=== PATIENT | female | born 1980 | race Caucasian/White ===

== ENCOUNTER 2018-10-18 11:27 | Inpatient (IN) ==
[2018-10-18] MEDS ORDERED: SODIUM CHLORIDE 0.9% 1000ML 1,000 ML IV ONE (12:38)
[2018-10-18] MEDS ORDERED: PROCHLORPERAZINE 2 ML IV ONE (12:38)
[2018-10-18] MEDS ORDERED: FAMOTIDINE 20MG/5ML IV PUSH IV STA (12:38)
[2018-10-18 12:54] LABS: Hematocrit (blood only) 37.6 % (37-47); Hemoglobin 12.6 g/dL (12.0-16.0); Mean Corpuscular Hgb Conc 33.5 g/dL (32-36); Mean Corpuscular Volume 93.5 fL (80-100); Mean Platelet Volume 11.3 fL (7.4-10.4); Platelet Count 232 K/uL (130-400); RDW Coefficient of Variation 14.7 % (11.5-14.5); RDW Standard Deviation 50.8 fL (36.4-46.3); Red Blood Count 4.02 M/uL (4.2-5.4); White Blood Count 5.98 K/uL (4.8-10.8)
[2018-10-18 12:58] LABS: Prothrombin Time 10.6 Seconds (9.0-12.0)
[2018-10-18 13:06] LABS: Albumin Level 3.5 gm/dl (3.4-5.0); Calcium 8.9 mg/dl (8.5-10.1); Creatinine Clr Calc Pharmacy 82.8 ml/min; Est GFR (African American) 83.9; Est GFR (Non-African American) 72.4; Magnesium 2.5 mg/dl (1.8-2.4); Potassium 4.3 mmol/L (3.5-5.1)
[2018-10-18 13:13] LABS: Albumin Globulin Ratio 0.9 (0.9-2); Bilirubin Direct 0.7 mg/dl (0-0.2); Bilirubin,Total 0.8 mg/dl (0.2-1); Globulin 3.9 gm/dl (2.5-4.0); Phosphorus 3.3 mg/dl (2.5-4.9); Total Protein 7.4 gm/dl (6.4-8.2)
[2018-10-18 13:18] LABS: Eosinophils # (manual) 0.53 K/uL (0-0.5); Eosinophils % (manual) 8.8 %; Lymphocytes # (manual) 2.09 K/uL (1.2-3.4); Monocytes # (manual) 0.21 K/uL (0.11-0.59); Monocytes % (manual) 3.5 %; Neutrophils % (manual) 32.5 %; Reactive Lymphocytes # (manual) 1.21 K/uL
[2018-10-18 13:21] LABS: Appearance Urine Clear (Clear); Bilirubin Urine Negative (Negative); Blood Urine Negative (Negative); Color Urine Dark Yellow; Glucose Urine UA Negative (Negative); Ketones Urine Negative (Negative); Leukocyte Esterase Urine Negative (Negative); Nitrite Urine Negative (Negative); Protein Urine Negative (Negative); Specific Gravity Urine 1.018 (1.000-1.030); Urobilinogen Urine Negative (Negative)
[2018-10-18 13:25] LABS: Pregnancy Test, Serum Negative (Negative)
[2018-10-18] MEDS ORDERED: IOVERSOL 100ml IV PRN (14:36)
--- NOTE | 2018-10-18 16:09 | CT Scan Report ---
CT abd pelvis IV con only CLINICAL HISTORY: 37 years-old Female presenting with abdominal pain, transaminitis. TECHNIQUE: Multidetector CT of the abdomen and pelvis was performed after the administration of intra venous contrast. IV contrast: 93 mL of Optiray 320. One or more dose lowering techniques were used co nsistent with the principles of ALARA (as low as reasonably achievable), including automatic exposure control, mA or kV adjustment to individual patient size, and/or use of iterative reconstruction. COMPARISON: None. CT DOSE (mGy.cm): The estimated cumulative dose is 354.80 mGy.cm. FINDINGS: Idea Worker topogram: Cholecystectomy clips and bilateral pelvic clips noted. Lung bases: Normal heart size. No pericardial or pleural effusion. Minimal dependent changes likely a telectasis. Liver: Normal morphology. No significant heterogeneity of liver enhancement. No liver lesion. Patent hepatic vasculature. Mild periportal edema, nonspecific. Biliary: Mild biliary ductal prominence likely a reservoir effect in the post cholecystectomy state. Gallbladder surgically absent. Pancreas: Normal. Spleen: Normal. Adrenal glands: Normal. Kidneys and ureters: Normal. No hydronephrosis. Bladder: The configuration of the bladder suggests pelvic ligamentous laxity. Bladder otherwise xiao l. Pelvic organs: Uterus and ovaries normal. Bilateral fallopian tube occlusion clips. Bowel: Mild stool throughout the colon. The appendix is normal. No bowel obstruction. Peritoneal cavity: No free fluid or intraperitoneal gas. Lymph nodes: No enlarged lymph nodes in the abdomen or pelvis. Vasculature: Aorta and IVC patent and normal in caliber. Abdominal wall: Normal. Musculoskeletal: Normal. IMPRESSION: 1. Periportal edema, which is nonspecific. This is most commonly seen in the setting of aggressive v olume resuscitation. Given the absence of extensive heterogeneity of liver parenchymal enhancement, p eriportal edema as a manifestation of hepatitis is felt to be less likely. No other evidence of acute intra-abdominal pathology. 2. Status post cholecystectomy. Electronically signed by: Deven Tao M.D. 10/18/2018 4:07 PM
--- NOTE | 2018-10-18 16:41 | Emergency Department Note ---
Entered by Meka Braun acting as a scribe for Loc Hannah MD History of Present Illness General Chief complaint: Abnormal Labs/Diagnostic Testing Stated complaint: ABNORMAL LABS Time Seen by Provider: 10/18/18 12:00 Source: patient Mode of arrival: other (correction officers) Limitations: no limitations History of Present Illness Onset (ago): day(s) 2 Location: chest and abdomen Severity: similar to prior episodes Pain Consistency: + other (worsening) Maximum Pain Intensity: 9 Quality: + other (looking yellow) Associated symptoms: + chest pain (right sided), + fever/chills (The patient complains of a now resolved fever.), + headaches, + nausea/vomiting (The patient complains of nausea.), + shortness of breath and + other (The patient complains of abdominal pain. ) The patient is a 37 year old female with a history of cholecystectomy and depr ession who presents to the ED with complaints of worsening abdominal pain that onset 2 days ago. The patient states that her symptoms are similar to a previous episode that occurred 1 month ago. She complains of shortness of breath, nausea, right-sided chest pain, headache, looking yellow, and now resolved fever. The patient denies pain with urination, cough, and congestion. The patient notes that she was admitted to [facility] for 6 days 1 month ago for liver problems. She states that she was flushed with fluids, had blood work completed, and then her numbers went down and she was sent back to [facility]. She notes that she drank alcohol in 2008 when she was going through a divorce. Home Medications Home Medications Medication Instructions Recorded Confirmed Type citalopram 20 mg PO DAILY 10/18/18 10/18/18 History mirtazapine 15 mg PO HS 10/18/18 10/18/18 History omeprazole 20 mg PO DAILY 10/18/18 10/18/18 History ondansetron HCl 4 mg PO BID PRN 10/18/18 10/18/18 History Allergies Allergy/AdvReac Type Severity Reaction Status Date / Time No Known Allergies Allergy Unverified 10/18/18 12:03 Past Med/Surg History Medical History Depression Liver problem Surgical History S/P cholecystectomy Family History Brother Leukemia Social History Preferred Language: Cambodian Communication Ability: Effective Pugger Helper Required: No Beliefs That Will Affect Care: None Current Living Situation: Other Current Living Situation Comment: [facility] current occupational status: other current occupation: [employer] Other Information That Helps Us Care for You: No Feels Safe at Home: Yes Safety Concerns: Feels Safe At This Time Smoking Status: Former smoker Hx Alcohol Use: No Hx Substance Use: No Review of Systems See HPI for pertinent positives & negatives. and A total of 10 systems reviewed and were otherwise negative Physical Exam Vital Signs Vital Signs - 24 hr 10/18/18 11:29 10/18/18 11:43 10/18/18 11:45 Temperature 36.9 C Temperature Source Oral Sepsis Recent Fever Within 48 Hours No Sepsis New/Unexplained Change in Mental Status No Sepsis Action Taken by Nursing No Action Required Pulse Rate 82 78 Pulse Rate [Finger] 77 Pulse Rate from SpO2 Sensor 84 Pulse Rhythm [Finger] Pulse Strength [Finger] Respiratory Rate 16 16 17 Respiratory Effort / Characteristics Respiratory Depth Normal Respiratory Pattern Blood Pressure 130/76 131/86 Blood Pressure [Right Arm] 131/86 Blood Pressure Mean 94 101 Blood Pressure Mean [Right Arm] 101 Blood Pressure Position [Right Arm] Pulse Oximetry 98 99 99 Oxygen Delivery Method Room Air Room Air 10/18/18 11:47 10/18/18 12:00 10/18/18 12:30 Temperature Temperature Source Sepsis Recent Fever Within 48 Hours Sepsis New/Unexplained Change in Mental Status Sepsis Action Taken by Nursing Pulse Rate 81 74 72 Pulse Rate [Finger] Pulse Rate from SpO2 Sensor 80 74 71 Pulse Rhythm [Finger] Pulse Strength [Finger] Respiratory Rate 13 13 14 Respiratory Effort / Characteristics Respiratory Depth Respiratory Pattern Blood Pressure Blood Pressure [Right Arm] Blood Pressure Mean Blood Pressure Mean [Right Arm] Blood Pressure Position [Right Arm] Pulse Oximetry 98 99 99 Oxygen Delivery Method 10/18/18 12:57 10/18/18 13:00 10/18/18 13:30 Temperature Temperature Source Sepsis Recent Fever Within 48 Hours Sepsis New/Unexplained Change in Mental Status Sepsis Action Taken by Nursing Pulse Rate 77 64 65 Pulse Rate [Finger] 77 Pulse Rate from SpO2 Sensor 76 65 65 Pulse Rhythm [Finger] Pulse Strength [Finger] Respiratory Rate 13 12 20 Respiratory Effort / Characteristics Respiratory Depth Respiratory Pattern Blood Pressure 105/67 Blood Pressure [Right Arm] 105/67 Blood Pressure Mean 79 Blood Pressure Mean [Right Arm] 79 Blood Pressure Position [Right Arm] Pulse Oximetry 98 98 98 Oxygen Delivery Method Room Air 10/18/18 14:00 10/18/18 14:40 10/18/18 14:41 Temperature Temperature Source Sepsis Recent Fever Within 48 Hours Sepsis New/Unexplained Change in Mental Status Sepsis Action Taken by Nursing Pulse Rate 64 69 Pulse Rate [Finger] Pulse Rate from SpO2 Sensor 65 71 Pulse Rhythm [Finger] Pulse Strength [Finger] Respiratory Rate 18 14 Respiratory Effort / Characteristics Respiratory Depth Respiratory Pattern Blood Pressure 105/67 117/74 Blood Pressure [Right Arm] Blood Pressure Mean 79 88 Blood Pressure Mean [Right Arm] Blood Pressure Position [Right Arm] Pulse Oximetry 98 98 Oxygen Delivery Method 10/18/18 14:42 10/18/18 15:00 10/18/18 15:30 Temperature Temperature Source Sepsis Recent Fever Within 48 Hours Sepsis New/Unexplained Change in Mental Status Sepsis Action Taken by Nursing Pulse Rate 58 L 65 61 Pulse Rate [Finger] Pulse Rate from SpO2 Sensor 58 L 64 61 Pulse Rhythm [Finger] Pulse Strength [Finger] Respiratory Rate 15 13 20 Respiratory Effort / Characteristics Respiratory Depth Respiratory Pattern Blood Pressure Blood Pressure [Right Arm] Blood Pressure Mean Blood Pressure Mean [Right Arm] Blood Pressure Position [Right Arm] Pulse Oximetry 99 98 99 Oxygen Delivery Method 10/18/18 15:46 10/18/18 15:47 10/18/18 16:00 Temperature Temperature Source Sepsis Recent Fever Within 48 Hours Sepsis New/Unexplained Change in Mental Status Sepsis Action Taken by Nursing Pulse Rate 62 59 L 59 L Pulse Rate [Finger] Pulse Rate from SpO2 Sensor 62 59 L 59 L Pulse Rhythm [Finger] Pulse Strength [Finger] Respiratory Rate 13 20 15 Respiratory Effort / Characteristics Respiratory Depth Respiratory Pattern Blood Pressure 104/70 Blood Pressure [Right Arm] Blood Pressure Mean 81 Blood Pressure Mean [Right Arm] Blood Pressure Position [Right Arm] Pulse Oximetry 99 99 99 Oxygen Delivery Method 10/18/18 16:30 10/18/18 17:00 10/18/18 17:30 Temperature Temperature Source Sepsis Recent Fever Within 48 Hours Sepsis New/Unexplained Change in Mental Status Sepsis Action Taken by Nursing Pulse Rate 67 58 L 62 Pulse Rate [Finger] Pulse Rate from SpO2 Sensor 68 60 63 Pulse Rhythm [Finger] Pulse Strength [Finger] Respiratory Rate 13 12 14 Respiratory Effort / Characteristics Respiratory Depth Respiratory Pattern Blood Pressure Blood Pressure [Right Arm] Blood Pressure Mean Blood Pressure Mean [Right Arm] Blood Pressure Position [Right Arm] Pulse Oximetry 99 99 99 Oxygen Delivery Method 10/18/18 17:54 10/18/18 18:58 Temperature 36.9 C Temperature Source Oral Sepsis Recent Fever Within 48 Hours Sepsis New/Unexplained Change in Mental Status Sepsis Action Taken by Nursing Pulse Rate 60 Pulse Rate [Finger] 70 Pulse Rate from SpO2 Sensor 60 Pulse Rhythm [Finger] Regular Pulse Strength [Finger] Normal Respiratory Rate 13 16 Respiratory Effort / Characteristics Non-Labored Spontaneous Respiratory Depth Normal Respiratory Pattern Regular Blood Pressure 116/71 Blood Pressure [Right Arm] 121/84 Blood Pressure Mean 86 Blood Pressure Mean [Right Arm] 96 Blood Pressure Position [Right Arm] Sitting Pulse Oximetry 99 98 Oxygen Delivery Method Room Air GENERAL: Awake, alert, fatigued-appearing, in no distress HENT: Normocephalic, atraumatic. Oropharynx with dry mucous membranes and otherwise unremarkable. Scant sclera icterus. EYES: Normal conjunctiva. Sclera non-icteric. NECK: Supple. No nuchal rigidity. FROM. No JVD. RESPIRATORY: Clear to auscultation. CARDIAC: Regular rate, normal rhythm. Extremities warm and well perfused. Pulses equal. ABDOMEN: Soft, non-distended. Mild epigastric and right upper quadrant ten derness to palpation. No rebound or guarding. No masses. RECTAL: Deferred. MUSCULOSKELETAL: Chest examination reveals no tenderness. The back is symmetrical on inspection without obvious abnormality. There is no CVA tenderness to palpation. No joint edema. LOWER EXTREMITIES: Calves are equal size bilaterally and non-tender. No edema. No discoloration. NEURO: Normal sensorium. No sensory or motor deficits noted. SKIN: No rash or jaundice noted. Course 1217: Past medical records reviewed. The patient was evaluated in room C09, and a complete history and physical examination were performed. 1445: Case was discussed with Dr. Do, [facility] hospitalist, who will evaluate the patient for admission. Administered Medications Ketorolac Tromethamine (Toradol) 15 mg IV Q6H PRN PRN Reason: Pain Stop: 10/23/18 20:25 Last Admin: 10/18/18 21:02 Dose: 15 mg Documented by: [id number] Mirtazapine (Remeron) 15 mg PO HS KIKE Stop: 11/17/18 20:59 Last Admin: 10/18/18 21:03 Dose: 15 mg Documented by: [id number] Discontinued Medications Famotidine (Pepcid 20mg Iv Push) 20 mg IV ONE STA Stop: 10/18/18 12:39 Last Admin: 10/18/18 12:53 Dose: 20 mg Documented by: [id number] Prochlorperazine (Compazine) 2 mls @ 1 mls/min IV ONE ONE Stop: 10/18/18 12:39 Last Admin: 10/18/18 12:53 Dose: 1 mls/min Documented by: [id number] Sodium Chloride (Nss 1000ml) 1,000 mls @ 999 mls/hr IV .Q1H1M ONE Stop: 10/18/18 13:38 Last Infusion: 10/18/18 13:54 Dose: 0 mls/hr Documented by: [id number] Admin: 10/18/18 12:53 Dose: 999 mls/hr Documented by: [id number] Ioversol (Optiray 320 100ml) 93 ml IV ONCE PRN PRN Reason: Interaction Checking Stop: 10/22/18 14:35 Last Admin: 10/18/18 14:37 Dose: 93 ml Documented by: [id number] Medical Decision Making Differential Diagnosis Differential diagnosis: Etiologies such as appendicitis, diverticulitis, PUD, biliary pathology, UTI, pancreatitis, obstruction, mesenteric ischemia, aortic pathology, infections, inflammatory bowel disease, renal colic, as well as others were entertained. Medical Records Attestation: I reviewed the patient's medical records. Home Medications Current Medication List: was personally reviewed by me Laboratory Data Attestation: I reviewed the patient's lab results. Result diagrams: 10/18/18 12:33 10/18/18 12:33 Lab Results 10/18/18 10/18/18 10/18/18 Range/Units 12:33 12:33 12:33 WBC 5.98 (4.8-10.8) K/uL RBC 4.02 L (4.2-5.4) M/uL Hgb 12.6 (12.0-16.0) g/dL Hct 37.6 (37-47) % MCV 93.5 (80-100) fL MCH 31.3 (25-34) pg MCHC 33.5 (32-36) g/dL RDW Std Deviation 50.8 H (36.4-46.3) fL RDW Coeff of Favian 14.7 H (11.5-14.5) % Plt Count 232 (130-400) K/uL MPV 11.3 H (7.4-10.4) fL Neutrophils % (Manual) 32.5 % Lymphocytes % (Manual) 35.0 % Reactive Lymphs % (Man) 20.2 % Monocytes % (Manual) 3.5 % Eosinophils % (Manual) 8.8 % Neutrophils # (Manual) 1.94 (1.4-6.5) K/uL Total Absolute Neuts 1.94 (1.4-6.5) K/uL Lymphocytes # (Manual) 2.09 (1.2-3.4) K/uL Reactive Lymphs # 1.21 K/uL Total Abs Lymphocytes 3.30 (1.2-3.4) K/uL Monocytes # (Manual) 0.21 (0.11-0.59) K/uL Eosinophils # (Manual) 0.53 H (0-0.5) K/uL PT 10.6 (9.0-12.0) Seconds INR 1.0 (0.9-1.1) Sodium 140 (136-145) mmol/L Potassium 4.3 (3.5-5.1) mmol/L Chloride 107 (98-107) mmol/L Carbon Dioxide 30 (21-32) mmol/L Anion Gap 3.0 (3-11) BUN 14 (7-18) mg/dl Creatinine 1.00 (0.6-1.2) mg/dl Est Cr Clr Drug Dosing 82.8 ml/min Est GFR ( Amer) 83.9 Est GFR (Non-Af Amer) 72.4 BUN/Creatinine Ratio 14.0 (10-20) Glucose 93 (70-99) mg/dl Calcium 8.9 (8.5-10.1) mg/dl Phosphorus 3.3 (2.5-4.9) mg/dl Magnesium 2.5 H (1.8-2.4) mg/dl Total Bilirubin 0.8 (0.2-1) mg/dl Direct Bilirubin 0.7 H (0-0.2) mg/dl AST 1136 H (15-37) U/L ALT 1670 H (12-78) U/L Alkaline Phosphatase 356 H (45-117) U/L Troponin I (0-0.045) ng/ml Total Protein 7.4 (6.4-8.2) gm/dl Albumin 3.5 (3.4-5.0) gm/dl Globulin 3.9 (2.5-4.0) gm/dl Albumin/Globulin Ratio 0.9 (0.9-2) Lipase 124 (73-393) U/L HCG, Qual (Negative) Urine Color Urine Appearance (Clear) Urine pH (4.5-7.5) Ur Specific [place] (1.000-1.030) Urine Protein (Negative) Urine Glucose (UA) (Negative) Urine Ketones (Negative) Urine Blood (Negative) Urine Nitrite (Negative) Urine Bilirubin (Negative) Urine Urobilinogen (Negative) Ur Leukocyte Esterase (Negative) Acetaminophen (10-30) ug/ml Hep Bs Antigen (Neg) Hepatitis C Antibody (Neg) 10/18/18 10/18/18 10/18/18 Range/Units 12:33 12:33 13:05 WBC (4.8-10.8) K/uL RBC (4.2-5.4) M/uL Hgb (12.0-16.0) g/dL Hct (37-47) % MCV (80-100) fL MCH (25-34) pg MCHC (32-36) g/dL RDW Std Deviation (36.4-46.3) fL RDW Coeff of Favian (11.5-14.5) % Plt Count (130-400) K/uL MPV (7.4-10.4) fL Neutrophils % (Manual) % Lymphocytes % (Manual) % Reactive Lymphs % (Man) % Monocytes % (Manual) % Eosinophils % (Manual) % Neutrophils # (Manual) (1.4-6.5) K/uL Total Absolute Neuts (1.4-6.5) K/uL Lymphocytes # (Manual) (1.2-3.4) K/uL Reactive Lymphs # K/uL Total Abs Lymphocytes (1.2-3.4) K/uL Monocytes # (Manual) (0.11-0.59) K/uL Eosinophils # (Manual) (0-0.5) K/uL PT (9.0-12.0) Seconds INR (0.9-1.1) Sodium (136-145) mmol/L Potassium (3.5-5.1) mmol/L Chloride (98-107) mmol/L Carbon Dioxide (21-32) mmol/L Anion Gap (3-11) BUN (7-18) mg/dl Creatinine (0.6-1.2) mg/dl Est Cr Clr Drug Dosing ml/min Est GFR ( Amer) Est GFR (Non-Af Amer) BUN/Creatinine Ratio (10-20) Glucose (70-99) mg/dl Calcium (8.5-10.1) mg/dl Phosphorus (2.5-4.9) mg/dl Magnesium (1.8-2.4) mg/dl Total Bilirubin (0.2-1) mg/dl Direct Bilirubin (0-0.2) mg/dl AST (15-37) U/L ALT (12-78) U/L Alkaline Phosphatase (45-117) U/L Troponin I < 0.015 (0-0.045) ng/ml Total Protein (6.4-8.2) gm/dl Albumin (3.4-5.0) gm/dl Globulin (2.5-4.0) gm/dl Albumin/Globulin Ratio (0.9-2) Lipase (73-393) U/L HCG, Qual Negative (Negative) Urine Color Dark Yellow Urine Appearance Clear (Clear) Urine pH 5.0 (4.5-7.5) Ur Specific [place] 1.018 (1.000-1.030) Urine Protein Negative (Negative) Urine Glucose (UA) Negative (Negative) Urine Ketones Negative (Negative) Urine Blood Negative (Negative) Urine Nitrite Negative (Negative) Urine Bilirubin Negative (Negative) Urine Urobilinogen Negative (Negative) Ur Leukocyte Esterase Negative (Negative) Acetaminophen (10-30) ug/ml Hep Bs Antigen (Neg) Hepatitis C Antibody (Neg) 10/18/18 10/18/18 Range/Units 19:01 20:34 WBC (4.8-10.8) K/uL RBC (4.2-5.4) M/uL Hgb (12.0-16.0) g/dL Hct (37-47) % MCV (80-100) fL MCH (25-34) pg MCHC (32-36) g/dL RDW Std Deviation (36.4-46.3) fL RDW Coeff of Favian (11.5-14.5) % Plt Count (130-400) K/uL MPV (7.4-10.4) fL Neutrophils % (Manual) % Lymphocytes % (Manual) % Reactive Lymphs % (Man) % Monocytes % (Manual) % Eosinophils % (Manual) % Neutrophils # (Manual) (1.4-6.5) K/uL Total Absolute Neuts (1.4-6.5) K/uL Lymphocytes # (Manual) (1.2-3.4) K/uL Reactive Lymphs # K/uL Total Abs Lymphocytes (1.2-3.4) K/uL Monocytes # (Manual) (0.11-0.59) K/uL Eosinophils # (Manual) (0-0.5) K/uL PT (9.0-12.0) Seconds INR (0.9-1.1) Sodium (136-145) mmol/L Potassium (3.5-5.1) mmol/L Chloride (98-107) mmol/L Carbon Dioxide (21-32) mmol/L Anion Gap (3-11) BUN (7-18) mg/dl Creatinine (0.6-1.2) mg/dl Est Cr Clr Drug Dosing ml/min Est GFR ( Amer) Est GFR (Non-Af Amer) BUN/Creatinine Ratio (10-20) Glucose (70-99) mg/dl Calcium (8.5-10.1) mg/dl Phosphorus (2.5-4.9) mg/dl Magnesium (1.8-2.4) mg/dl Total Bilirubin (0.2-1) mg/dl Direct Bilirubin (0-0.2) mg/dl AST (15-37) U/L ALT (12-78) U/L Alkaline Phosphatase (45-117) U/L Troponin I (0-0.045) ng/ml Total Protein (6.4-8.2) gm/dl Albumin (3.4-5.0) gm/dl Globulin (2.5-4.0) gm/dl Albumin/Globulin Ratio (0.9-2) Lipase (73-393) U/L HCG, Qual (Negative) Urine Color Urine Appearance (Clear) Urine pH (4.5-7.5) Ur Specific [place] (1.000-1.030) Urine Protein (Negative) Urine Glucose (UA) (Negative) Urine Ketones (Negative) Urine Blood (Negative) Urine Nitrite (Negative) Urine Bilirubin (Negative) Urine Urobilinogen (Negative) Ur Leukocyte Esterase (Negative) Acetaminophen < 2 L (10-30) ug/ml Hep Bs Antigen Neg (Neg) Hepatitis C Antibody Prelim Pos H (Neg) Imaging Data Attestation: I personally reviewed and interpreted this imaging study as follows: Radiologist's Impression: CT abd pelvis IV con only CLINICAL HISTORY: 37 years-old Female presenting with abdominal pain, transaminitis. TECHNIQUE: Multidetector CT of the abdomen and pelvis was performed after the administration of intravenous contrast. IV contrast: 93 mL of Optiray 320. One or more dose lowering techniques were used consistent with the principles of ALARA (as low as reasonably achievable), including automatic exposure control, mA or kV adjustment to individual patient size, and/or use of iterative reconstruction. COMPARISON: None. CT DOSE (mGy.cm): The estimated cumulative dose is 354.80 mGy.cm. FINDINGS: Structural Welder topogram: Cholecystectomy clips and bilateral pelvic clips noted. Lung bases: Normal heart size. No pericardial or pleural effusion. Minimal dependent changes likely atelectasis. Liver: Normal morphology. No significant heterogeneity of liver enhancement. No liver lesion. Patent hepatic vasculature. Mild periportal edema, nonspecific. Biliary: Mild biliary ductal prominence likely a reservoir effect in the post cholecystectomy state. Gallbladder surgically absent. Pancreas: Normal. Spleen: Normal. Adrenal glands: Normal. Kidneys and ureters: Normal. No hydronephrosis. Bladder: The configuration of the bladder suggests pelvic ligamentous laxity. Bladder otherwise normal. Pelvic organs: Uterus and ovaries normal. Bilateral fallopian tube occlusion clips. Bowel: Mild stool throughout the colon. The appendix is normal. No bowel obstruction. Peritoneal cavity: No free fluid or intraperitoneal gas. Lymph nodes: No enlarged lymph nodes in the abdomen or pelvis. Vasculature: Aorta and IVC patent and normal in caliber. Abdominal wall: Normal. Musculoskeletal: Normal. IMPRESSION: 1. Periportal edema, which is nonspecific. This is most commonly seen in the setting of aggressive volume resuscitation. Given the absence of extensive heterogeneity of liver parenchymal enhancement, periportal edema as a manifestation of hepatitis is felt to be less likely. No other evidence of acute intra-abdominal pathology. 2. Status post cholecystectomy. Blood Pressure Blood Pressure Findings: Normal blood pressure MDM Narrative The patient is a pleasant 37-year-old woman current inmate who presents to emergency department with worsening generalized weakness and upper abdominal pain after having outpatient labs done at her facility today for the symptoms, which are in the setting of being admitted to [facility] 1 month ago for similar symptoms with significant jaundice per the patient and had where she reports she was there for [address] scan, ultrasound, lab test but does not believe they ever identified a cause for her symptoms. Patient denies any his tory of regular Tylenol or alcohol use. On arrival patient is fatigued- appearing but in no acute distress, afebrile with stable vital signs. On exam the patient has scant scleral icterus. She has mild epigastric and right upper quadrant tenderness without peritoneal signs. She appears clinically dry. EKG unremarkable without overt ischemia. WBC, H/H, platelets within normal limits. INR within normal limits. Chemistry without acidosis. LFTs elevated with AST 1136, ALT 1670, alk phos 356, total bilirubin 0.8 with direct bilirubin 0.7. Troponin negative. Lipase within normal limits. UA negative for infection. CT the abdomen pelvis demonstrates evidence of periportal edema which could be consistent with the patient's significant transaminitis suggestive of hepatitis. Unclear etiology to the patient's symptoms at this time. Moreover unclear to what extent the patient's transaminitis is new from her admission in [place] last month. Although her values here today do appear to be even increased from values that were drawn from the [facility] this morning which showed AST 800. Case was discussed with Dr. Do, [facility] hospitalist, who will evaluate the patient for admission. Impression & Plan Transaminitis Discharge Plan Visit Data *Final* Discharge Date/Time: 10/18/18 18:16 Chief Complaint: Abnormal Labs/Diagnostic Testing Stated Complaint: ABNORMAL LABS ED Provider: Loc Hannah Discharge Problem: Transaminitis Patient Disposition: Admitted As Inpatient Discharge Instructions Interventions: ED Discharge Assessment Last Done: 10/18/18 18:16 The scribe's documentation has been prepared under my direction and personally reviewed by me in its entirety. I confirm that the note above accurately reflects all work, treatment, procedures, and medical decision making performed by me.
[2018-10-18] MEDS ORDERED: ONDANSETRON INJ 2 MG/ML 2 ML VIAL IV PRN (18:37)
[2018-10-18 20:07] LABS: Hepatitis B Surface Antigen Neg (Neg)
--- NOTE | 2018-10-18 20:25 | History & Physical Report ---
Date of Service October 18, 2018 Assessment & Plan (1) Hepatitis: Patient reports no alcohol intake while incarcerated. With guards present, she denied any alcohol use, illicit drug use in the alf, taking Tylenol in alf, and any sexual contacts while incarcerated. When first episode occurred and was worked up in [place], she denies being on any medications at all. Ddx includes undisclosed exposure to hepatitis (through needle or sexual encounter), toxic exposure, autoimmune hepatitis. Choledocolithiasis possible, but had remote cholecystectomy, and liver labs do not indicate obstructive cause. CMV/EBV very unlikely given - Getting records from [place] - RUQ u/s - Will get acetaminophen level and hepatitis panel as low-hanging possible causes - GI consult - Defer further labs (anti-smooth muscle, anti-KLM, etc) until we see what [place] results are - Monitor LFTs (2) Depression: Was not on any medication prior to her first episode of hepatitis, so unlikely either medication caused her current presentation. - Continue citalopram & mirtazapine (3) DVT prophylaxis: SCDs - Low risk per calculator History of Present Illness Primary Care Provider: [facility] 37-year-old female with history of depression who presents with hepatitis. Patient reports that approximately 1 month ago she was hospitalized in the [facility] for similar episode. She reports significant testing done at that time, but reports that she was never told what caused her hepatitis. She was discharged and return to alf where she has been in normal state of health for approximately 1 month. She reports that on Tuesday or Tuesday she began to feel similarly to her prior episode. She reports general weakness, nausea without emesis, epigastric pain without radiation, subjective fevers and chills, and headache all getting worse over the course of the last few days. She reported the symptoms to her facility today, and was found to have elevated LFTs for which she was sent to [facility]. At present she denies any swelling, dysuria, polyuria, or changes in the stools such as pale stool. Allergies Allergy/AdvReac Type Severity Reaction Status Date / Time No Known Allergies Allergy Unverified 10/18/18 12:03 Home Medications Home Medications Medication Instructions Recorded Confirmed Type citalopram 20 mg PO DAILY 10/18/18 10/18/18 History mirtazapine 15 mg PO HS 10/18/18 10/18/18 History omeprazole 20 mg PO DAILY 10/18/18 10/18/18 History ondansetron HCl 4 mg PO BID PRN 10/18/18 10/18/18 History Past Med/Surg History Medical History Depression Liver problem Surgical History S/P cholecystectomy Family History Brother Leukemia Social History Preferred Language: Kuwaiti Communication Ability: Effective Curb Attendant Required: No Beliefs That Will Affect Care: None Current Living Situation: Other Current Living Situation Comment: Shelter current occupational status: other current occupation: longterm Other Information That Helps Us Care for You: No Feels Safe at Home: Yes Safety Concerns: Feels Safe At This Time Smoking Status: Former smoker Hx Alcohol Use: No Hx Substance Use: No Review of Systems Constitutional: + fever, + chills, + sweats, + body aches, + fatigue, + malaise, + weakness and + anorexia Eyes: no diplopia Ear, Nose, Mouth, Throat: no ear trauma, no nasal discharge and no dental pain Respiratory: no cough, no chest congestion and no dyspnea Cardiovascular: no chest pain, no dyspnea on exertion, no palpitations and no syncope Gastrointestinal: + abdominal pain and + nausea; no belching, no vomiting, no constipation, no diarrhea/loose stools, no blood in stools and no melena Musculoskeletal: no back pain, no joint pain and no muscle weakness Integumentary: no rash, no skin ulcer and no erythema Neurologic: + generalized weakness and + headache(s); no loss of sensation, no numbness and no paresthesia Psychiatric: no depression and no anxiety Endocrine: no fatigue, no polydipsia and no polyphagia Physical Exam Vital Signs (Past 24 Hours): Last Vital Signs Temp 36.9 C 10/18/18 18:58 Pulse 70 10/18/18 18:58 Resp 16 10/18/18 18:58 BP 121/84 10/18/18 18:58 Pulse Ox 98 10/18/18 18:58 Constitutional: WD/WN, vitals as above Eyes: EOM intact bilaterally; no conjunctival abnormality ENMT: external ear and nose normal, oropharynx normal Neck: trachea midline, no thyromegaly normal visual inspection Respiratory: normal respiratory effort, lungs clear to auscultation no respiratory distress Cardiovascular: RRR, no murmur, no edema Gastrointestinal (Abdomen): Inspection/Auscultation: abdomen normal to inspection; abdomen not distended Musculoskeletal: no cyanosis or clubbing, extremities motor strength 5/5 Skin: no rashes, warm and dry Neurologic: moves all extremities and awake Psychiatric: Orientation: alert, oriented to person and cooperative
[2018-10-18] MEDS: KETOROLAC TROMETHAMINE 15 MG/ML VIAL IV PRN (21:02)
[2018-10-18] MEDS: MIRTAZAPINE TAB 15 MG TAB PO SCH (21:03)
[2018-10-19] MEDS ORDERED: INFLUENZA ADMINISTRATION CHARGE ONE (02:15)
[2018-10-19] MEDS ORDERED: INFLUENZA VIRUS QUAD VACCINE 0.5 ML SYR IM ONE (02:15)
[2018-10-19 06:53] LABS: Hematocrit (blood only) 35.5 % (37-47); Hemoglobin 11.7 g/dL (12.0-16.0); Mean Corpuscular Volume 93.9 fL (80-100); Mean Platelet Volume 11.2 fL (7.4-10.4); Platelet Count 225 K/uL (130-400); RDW Coefficient of Variation 14.8 % (11.5-14.5); RDW Standard Deviation 51.1 fL (36.4-46.3); Red Blood Count 3.78 M/uL (4.2-5.4); White Blood Count 5.82 K/uL (4.8-10.8)
[2018-10-19 07:04] LABS: INR 1.1 (0.9-1.1); Prothrombin Time 10.8 Seconds (9.0-12.0)
[2018-10-19 07:24] LABS: BUN Creatinine Ratio 13.9 (10-20); Calcium 8.5 mg/dl (8.5-10.1); Est GFR (African American) 96.6; Est GFR (Non-African American) 83.4; Magnesium 2.3 mg/dl (1.8-2.4); Potassium 4.1 mmol/L (3.5-5.1)
--- NOTE | 2018-10-19 07:25 | Ultrasound Report ---
DOPPLER ULTRASOUND OF THE HEPATIC AND PORTAL VASCULATURE CLINICAL HISTORY: Periportal edema. COMPARISON STUDY: Abdominal CT dated 10/18/2018. FINDINGS: Real-time, grayscale, and color Doppler sonography of the hepatic and portal vasculature is performed. The main portal vein as well as the right and left intrahepatic portal veins are patent w ith normal direction of flow. Velocities within the main portal vein measure up to 27 cm/s. The hepat ic artery is patent with velocities measuring up to 36 cm/s. The hepatic veins are patent with normal venous waveforms. The splenic vein is patent. The IVC is patent. IMPRESSION: Normal Doppler assessment of the hepatic and portal vasculature. Electronically signed by: Juanpablo Augustine M.D. 10/19/2018 7:23 AM
[2018-10-19 07:31] LABS: Albumin Globulin Ratio 0.8 (0.9-2); Bilirubin,Total 0.9 mg/dl (0.2-1); Globulin 3.7 gm/dl (2.5-4.0); Total Protein 6.7 gm/dl (6.4-8.2)
[2018-10-19] MEDS: KETOROLAC TROMETHAMINE 15 MG/ML VIAL IV PRN ×3 (08:29→21:38)
[2018-10-19] MEDS: PANTOprazole 40 MG TAB PO SCH (08:29)
[2018-10-19] MEDS: CITALOPRAM 20 MG TAB PO SCH (08:29)
--- NOTE | 2018-10-19 08:29 | Ultrasound Report ---
ABDOMINAL ULTRASOUND, RIGHT UPPER QUADRANT HISTORY: RUQ for hepatitis. COMPARISON: None. FINDINGS: Pancreas: The pancreas demonstrates a normal echotexture. Liver: Unremarkable. Gallbladder: The gallbladder is surgically absent. CBD: 3 mm. Right kidney: No hydronephrosis. IMPRESSION: No significant abnormality identified within the right upper quadrant. Electronically signed by: Bruno Warren M.D. 10/19/2018 8:28 AM
[2018-10-19 11:19] LABS: Ferritin 107.5 ng/ml (8-388)
--- NOTE | 2018-10-19 11:21 | Gastrointestinal Consultation ---
Date of Consultation October 19, 2018 Assessment & Plan (1) Elevated LFTs: Pt is a 37 y/o female inmate who presented w malaise, nausea w/o vomiting, epigastric/RUQ abd pain. Noted to have elevated LFTs on exam but normal mental status, INR, Plt count. Abd imaging studies showed signs of s/p cholecystectomy, periportal edema but otherwise negative. Hep C preliminary positive, awaiting confirmation (risk factors: tattoos, IVDU). - She was admitted 1 month ago at [facility] for similar issues; awaiting full records to be transferred. - Obtain MRCP to r/o biliary stones given abd pain symptoms though she is s/p cholecystectomy. - Will consider EGD eval to r/o PUD, gastritis, Hpylori in the future if abd pain symptoms continue. - F/U full acute hepatitis panel and HCV RNA quant. Will obtain other autoimmune markers, Ceruloplasmin, celiac panel, alpha 1 antitrypsin, iron sat & ferritin, viral (EBV, CMV, Parvo, HSV 1/2) serologies. Pls submit urine for drug screen. - Trend LFTs, Cr, PT/INR daily ; monitor for s/s of mental status changes. - Avoid APAP and other hepatotoxic meds. Supervising Physician Co-Signing Physician Notes I saw and evaluated the patient. She was referred to the hospital for evaluation of recurrent epigastric discomfort and elevation of her liver associated enzymes. The patient is presently incarcerated. She does note a history of intravenous drug abuse. Physical examination No obvious distress No abdominal tenderness Numerous tattoos noted Impression: Patient with a significant elevation of her liver associated enzymes. Given the degree of elevation 1 would consider a viral etiology as the most likely cause of her presentation. Recommendations MRCP to evaluate for gallstone disease Viral liver disease panels ordered Autoimmune panel ordered Continue IV hydration Consider a drug screen History of Present Illness Reason for Consultation: Hepatitis Requesting Physician: Dr. Zi Do Attending Physician: Dr. Ezio Sandhu History of Present Illness Pt is a 37 y/o inmate who presented to ED yesterday w c/o nausea w/o vomiting, weakness, epigastric and RUQ abd pain. Upon evaluation note to have elevated LFTs: Tbili 0.9, AST 1136, ALT 1670, AP 356. Lipase 124. She had similar symptoms 1 month ago and was hospitalized at [facility] x 6 days. Also had elevated LFTs at that time but told not sure etiology. She recalled having u/s and CT scan done. We are awaiting records to be transferred. She was feeling well after DC'd from [facility] but symptoms happened again 3 days ago. She has associated night sweats but denies fever, chills, nasal congestion, cough, sore throat, CP, SOB. + epigastric and RUQ abd pain. She is s/p cholecystectomy >10yrs ago. She has daily BM, denies pale stool or rectal blee ding. She notices her urine is dark but denies any dysuria, hematuria. She does noticed her sclera turned yellow a few days ago as well. No swelling on legs. Labs reviewed: CBC w/o leukocytosis, H/H 06/11. PT/INR 10.8/1.1. APAP negative, UA normal. Negative test. Her acute hepatitis panel showed preliminary Hep C positive, confirmation to follow. Abdominal imaging w CT abd/pelvis, RUQ u/s, portal vein u/s w signs of periportal edema and s/p cholecystectomy state, otherwise unremarkable. Pt denies any meds prior to her last admission at [facility] but since DC'd on Omeprazole, Zofran, Mirtazapine and Citalopram. Denies sick contact including cellmate, no antibx, no APAP or NSAIDs on regular basis. She smokes 1PPD, and admitted to be forcefully injected w IV meth before her incarceration. She has multiple tattoos. Denies any sexual relations w Hepatitis infected partners. No family hx liver/biliary issues, autoimmune hepatitis. Though brother w leukemia, mother w oral ca. Allergies Allergy/AdvReac Type Severity Reaction Status Date / Time No Known Allergies Allergy Unverified 10/18/18 12:03 Home Medications Home Medications Medication Instructions Recorded Confirmed Type citalopram 20 mg PO DAILY 10/18/18 10/18/18 History mirtazapine 15 mg PO HS 10/18/18 10/18/18 History omeprazole 20 mg PO DAILY 10/18/18 10/18/18 History ondansetron HCl 4 mg PO BID PRN 10/18/18 10/18/18 History Patient History Medical History Depression Liver problem Surgical History S/P cholecystectomy Family History Brother Leukemia Social History Preferred Language: Tajik Communication Ability: Effective R[employer] Plasma [facility] Required: No Beliefs That Will Affect Care: None Current Living Situation: Other Current Living Situation Comment: Prison current occupational status: other current occupation: [employer] Other Information That Helps Us Care for You: No Feels Safe at Home: Yes Safety Concerns: Feels Safe At This Time Smoking Status: Former smoker Hx Alcohol Use: No Hx Substance Use: No Review of Systems See HPI above Physical Exam Vital Signs (Past 24 Hours): Last Vital Signs Temp 36.7 C 10/19/18 07:59 Pulse 65 10/19/18 07:59 Resp 18 10/19/18 07:59 BP 123/84 10/19/18 07:59 Pulse Ox 99 10/19/18 07:59 Constitutional: WD/WN, vitals as above well groomed, cooperative and comfortable Eyes: PERRL, conjunctivae normal, anicteric sclerae ENMT: external ear and nose normal, oropharynx normal Respiratory: normal respiratory effort, lungs clear to auscultation Cardiovascular: RRR, no murmur, no edema Gastrointestinal (Abdomen): Inspection/Auscultation: normal bowel sounds Percussion/Palpation: + abdomen tender (epigastric, RUQ ) and abdomen soft Skin: no rashes, warm and dry no jaundice Neurologic: Motor/Sensory: no asterixis Psychiatric: A+Ox3, euthymic affect Lymphatic: no lymphedema Results & Data Laboratory Results Laboratory Results - last 72 hr 10/18/18 10/18/18 10/18/18 12:33 12:33 12:33 WBC 5.98 RBC 4.02 L Hgb 12.6 Hct 37.6 MCV 93.5 MCH 31.3 MCHC 33.5 RDW Std Deviation 50.8 H RDW Coeff of Favian 14.7 H Plt Count 232 MPV 11.3 H Neutrophils % (Manual) 32.5 Lymphocytes % (Manual) 35.0 Reactive Lymphs % (Man) 20.2 Monocytes % (Manual) 3.5 Eosinophils % (Manual) 8.8 Neutrophils # (Manual) 1.94 Total Absolute Neuts 1.94 Lymphocytes # (Manual) 2.09 Reactive Lymphs # 1.21 Total Abs Lymphocytes 3.30 Monocytes # (Manual) 0.21 Eosinophils # (Manual) 0.53 H PT 10.6 INR 1.0 Sodium 140 Potassium 4.3 Chloride 107 Carbon Dioxide 30 Anion Gap 3.0 BUN 14 Creatinine 1.00 Est Cr Clr Drug Dosing 82.8 Est GFR ( Amer) 83.9 Est GFR (Non-Af Amer) 72.4 BUN/Creatinine Ratio 14.0 Glucose 93 Calcium 8.9 Phosphorus 3.3 Magnesium 2.5 H Total Bilirubin 0.8 Direct Bilirubin 0.7 H AST 1136 H ALT 1670 H Alkaline Phosphatase 356 H Troponin I Total Protein 7.4 Albumin 3.5 Globulin 3.9 Albumin/Globulin Ratio 0.9 Lipase 124 HCG, Qual Urine Color Urine Appearance Urine pH Ur Specific [place] Urine Protein Urine Glucose (UA) Urine Ketones Urine Blood Urine Nitrite Urine Bilirubin Urine Urobilinogen Ur Leukocyte Esterase Acetaminophen Hep Bs Antigen Hepatitis C Antibody 10/18/18 10/18/18 10/18/18 12:33 12:33 13:05 WBC RBC Hgb Hct MCV MCH MCHC RDW Std Deviation RDW Coeff of Favian Plt Count MPV Neutrophils % (Manual) Lymphocytes % (Manual) Reactive Lymphs % (Man) Monocytes % (Manual) Eosinophils % (Manual) Neutrophils # (Manual) Total Absolute Neuts Lymphocytes # (Manual) Reactive Lymphs # Total Abs Lymphocytes Monocytes # (Manual) Eosinophils # (Manual) PT INR Sodium Potassium Chloride Carbon Dioxide Anion Gap BUN Creatinine Est Cr Clr Drug Dosing Est GFR ( Amer) Est GFR (Non-Af Amer) BUN/Creatinine Ratio Glucose Calcium Phosphorus Magnesium Total Bilirubin Direct Bilirubin AST ALT Alkaline Phosphatase Troponin I < 0.015 Total Protein Albumin Globulin Albumin/Globulin Ratio Lipase HCG, Qual Negative Urine Color Dark Yellow Urine Appearance Clear Urine pH 5.0 Ur Specific [place] 1.018 Urine Protein Negative Urine Glucose (UA) Negative Urine Ketones Negative Urine Blood Negative Urine Nitrite Negative Urine Bilirubin Negative Urine Urobilinogen Negative Ur Leukocyte Esterase Negative Acetaminophen Hep Bs Antigen Hepatitis C Antibody 10/18/18 10/18/18 10/19/18 19:01 20:34 06:28 WBC 5.82 RBC 3.78 L Hgb 11.7 L Hct 35.5 L MCV 93.9 MCH 31.0 MCHC 33.0 RDW Std Deviation 51.1 H RDW Coeff of Favian 14.8 H Plt Count 225 MPV 11.2 H Neutrophils % (Manual) Lymphocytes % (Manual) Reactive Lymphs % (Man) Monocytes % (Manual) Eosinophils % (Manual) Neutrophils # (Manual) Total Absolute Neuts Lymphocytes # (Manual) Reactive Lymphs # Total Abs Lymphocytes Monocytes # (Manual) Eosinophils # (Manual) PT INR Sodium Potassium Chloride Carbon Dioxide Anion Gap BUN Creatinine Est Cr Clr Drug Dosing Est GFR ( Amer) Est GFR (Non-Af Amer) BUN/Creatinine Ratio Glucose Calcium Phosphorus Magnesium Total Bilirubin Direct Bilirubin AST ALT Alkaline Phosphatase Troponin I Total Protein Albumin Globulin Albumin/Globulin Ratio Lipase HCG, Qual Urine Color Urine Appearance Urine pH Ur Specific [place] Urine Protein Urine Glucose (UA) Urine Ketones Urine Blood Urine Nitrite Urine Bilirubin Urine Urobilinogen Ur Leukocyte Esterase Acetaminophen < 2 L Hep Bs Antigen Neg Hepatitis C Antibody Prelim Pos H 10/19/18 10/19/18 06:28 06:28 WBC RBC Hgb Hct MCV MCH MCHC RDW Std Deviation RDW Coeff of Favian Plt Count MPV Neutrophils % (Manual) Lymphocytes % (Manual) Reactive Lymphs % (Man) Monocytes % (Manual) Eosinophils % (Manual) Neutrophils # (Manual) Total Absolute Neuts Lymphocytes # (Manual) Reactive Lymphs # Total Abs Lymphocytes Monocytes # (Manual) Eosinophils # (Manual) PT 10.8 INR 1.1 Sodium 141 Potassium 4.1 Chloride 109 H Carbon Dioxide 27 Anion Gap 5.0 BUN 12 Creatinine 0.89 Est Cr Clr Drug Dosing 93.0 Est GFR ( Amer) 96.6 Est GFR (Non-Af Amer) 83.4 BUN/Creatinine Ratio 13.9 Glucose 77 Calcium 8.5 Phosphorus Magnesium 2.3 Total Bilirubin 0.9 Direct Bilirubin AST 706 H ALT 1282 H Alkaline Phosphatase 274 H Troponin I Total Protein 6.7 Albumin 3.0 L Globulin 3.7 Albumin/Globulin Ratio 0.8 L Lipase HCG, Qual Urine Color Urine Appearance Urine pH Ur Specific [place] Urine Protein Urine Glucose (UA) Urine Ketones Urine Blood Urine Nitrite Urine Bilirubin Urine Urobilinogen Ur Leukocyte Esterase Acetaminophen Hep Bs Antigen Hepatitis C Antibody
[2018-10-19 12:20] LABS: Pregnancy Test, Urine Negative (Negative)
[2018-10-19 12:44] LABS: Amphetamines+Metham, Urine Neg (Neg); Barbiturates, Urine Neg (Neg); Benzodiazepine, Urine Neg (Neg); Cocaine, Urine Neg (Neg); MDMA (Ecstacy), Urine Neg (Neg); Methadone, Urine Neg (Neg); Opiate, Urine Neg (Neg); Phencyclidine, Urine Neg (Neg)
--- NOTE | 2018-10-19 18:30 | Magnetic Resonance Report ---
MRCP CLINICAL HISTORY: Elevated liver function tests. Right upper quadrant pain. Nausea. Evaluate for bili desmond stone. COMPARISON STUDY: CT of the abdomen and pelvis right upper quadrant ultrasound October 18, 2018. TECHNIQUE: Utilizing a 1.5 Zehra magnet and dedicated coil, multiplanar, multi echo imaging of the up per abdomen was performed utilizing heavily T2 weighted pulsing sequences. FINDINGS: There is no biliary ductal dilatation status post cholecystectomy. The common bile duct vinay sures 6 mm in caliber. There are no common bile duct calculi. Course and caliber of the main pancreat ic duct are normal. No hepatic lesions are identified on this unenhanced exam. The main, left and rig ht portal veins appear grossly patent. Unenhanced images of the spleen, adrenal glands and kidneys ar e normal. There is no abdominal adenopathy or ascites. Caliber of visualized small and large bowel ar e normal. IMPRESSION: Unremarkable MRCP status post cholecystectomy. Electronically signed by: Hector Weinstein M.D. 10/19/2018 6:28 PM
--- NOTE | 2018-10-19 20:02 | Family Medicine Progress Note ---
Date of Service October 19, 2018 Assessment & Plan (1) Hepatitis: Ms Lissa Brown is a 37 year old incarcerated woman with a history of cholecystectomy who presents today for a second episode of feeling ill with elevated LFT's ELevated Liver Enzymes * Preliminary positive for hepatitis C here, records from her previous hospital admission indicate she was treated for hepatitis C at that time as well. * Sizable percentage of acute hepatitis C infections are able to clear on their own and not turn into chronic infection, we will treat supportively for now and wait before starting curative treatment for chronic infection as an outpatient * Patient in relative comfort currently * LFT's trending down 706 and 1282 AST and ALT respectively * GI consulted * I will contact alf in the morning to try to coordinate outpatient follow up for her Hepatitis C infectison with GI. (2) Depression: (3) S/P cholecystectomy: Supervising Physician Co-Signing Physician Notes I personally examined the patient and verified all gage points of history and exam, discussed case, and agree with decision making with Dr Alexis. Feeling okay. Some nausea some pain. Discussed probable working diagnosis of acute hepatitis C. Discussed HIV testing, she consents. GI input appreciated. Vitals noted, in general she is in no distress. HEENT normal cephalic atraumatic mucous members are moist. Breathing is unlabored no accessory muscle use. Skin shows no rashes no pallor or icterus. Abdominal pain/nauseamost likely acute hep C. Await records from [place], await further follow-up on viral testing here. Check HIV (patient consents), otherwise as per GI. Otherwise as above Physical Exam Vital Signs (Past 24 Hours): Last Vital Signs Temp 36.7 C 10/19/18 15:00 Pulse 76 10/19/18 15:00 Resp 18 10/19/18 15:00 BP 119/83 10/19/18 15:00 Pulse Ox 96 10/19/18 15:00 Resident Activity Tracking Resident Involvement: Resident Care Provided Care Provided: Adult Hospital Medicine
[2018-10-19] MEDS: MIRTAZAPINE TAB 15 MG TAB PO SCH (21:11)
[2018-10-20] MEDS ORDERED: TRAMADOL HCL 50 MG TABLET PO STA (00:23)
[2018-10-20] MEDS: CITALOPRAM 20 MG TAB PO SCH (08:03)
[2018-10-20] MEDS: PANTOprazole 40 MG TAB PO SCH (08:03)
[2018-10-20] MEDS: KETOROLAC TROMETHAMINE 15 MG/ML VIAL IV PRN ×2 (08:04→14:03)
[2018-10-20 08:32] LABS: BUN Creatinine Ratio 16.7 (10-20); Calcium 8.6 mg/dl (8.5-10.1); Creatinine Clr Calc Pharmacy 82.8 ml/min; Est GFR (African American) 83.9; Est GFR (Non-African American) 72.4; Potassium 4.5 mmol/L (3.5-5.1)
[2018-10-20 08:35] LABS: Albumin Globulin Ratio 0.8 (0.9-2); Bilirubin,Total 0.8 mg/dl (0.2-1); Globulin 3.8 gm/dl (2.5-4.0); Total Protein 6.8 gm/dl (6.4-8.2)
--- NOTE | 2018-10-20 11:21 | Gastroenterology Progress Note ---
Date of Service October 20, 2018 Assessment & Plan (1) Elevated LFTs: Pt is a 37 y/o female inmate with markedly elevated transaminases w/o bilirubin elevation. Imaging w/o obstruction and HCV antibody preliminary positive. Plan: OK for DC from a GI perspective. Follow LFTs to resolution. Will review other viral serology and final HCV antibody when available. Will need HCV antibody and if (+) viral load in approx 6 months and if positive then will be a candidate for chronic HCV treatment. We would be happy to follow in OP GI clinic but will await referral from half-way system. Supervising Physician Co-Signing Physician Notes This patient was discharged her to afternoon rounds. She appears to have evidence of a viral hepatitis. She will did require further follow-up with her primary provider in the half-way unit to determine if expert care will be needed in the future for suspected hepatitis C. Isaac Alcaraz is a 37 yr old female admitted on 10/18 for abdominal pain, nausea, vomiting with significant elevated LFTs though normal INR and T bili. HCV preliminary is (+), HIV (-), other serology pending. Risk factor for HCV: IVDU Imaging: US 10/[address] 10/18 with IV, no oral contrast: periportal edema, no other abnormalities Portal vein patent on Doppler US 10/18 MRCP yesterday unremarkable. LFTs: AST 1136->310, ALT 1670->960, ALk Phos 356->263, T Bili 0.8, INR 1.1. Physical Exam Vital Signs (Past 24 Hours): Last Vital Signs Temp 36.8 C 10/20/18 07:38 Pulse 82 10/20/18 07:38 Resp 18 10/20/18 07:38 BP 139/93 10/20/18 07:38 Pulse Ox 98 10/20/18 07:38 Constitutional: WD/WN, vitals as above Eyes: PERRL, conjunctivae normal, anicteric sclerae ENMT: external ear and nose normal, oropharynx normal Neck: trachea midline, no thyromegaly Respiratory: normal respiratory effort, lungs clear to auscultation Cardiovascular: RRR, no murmur, no edema Gastrointestinal (Abdomen): Percussion/Palpation: + abdomen tender (entire upper abdomen, RUQ>LUQ) and abdomen soft; no splenomegaly mild hepatomegaly Skin: no jaundice Neurologic: PERRL, EOMI, accommodation nl, no face palsy, no dysarthria Psychiatric: A+Ox3, euthymic affect Lymphatic: no cervical or axillary lymphadenopathy Results & Data Diagnostic Findings See HPI for imaging results LFTs:
--- NOTE | 2018-10-20 13:38 | Discharge Summary ---
Date of Service October 20, 2018 Admission HPI Per Admitting Provider 37-year-old female with history of depression who presents with hepatitis. Patient reports that approximately 1 month ago she was hospitalized in the [facility] for similar episode. She reports significant testing done at that time, but reports that she was never told what caused her hepatitis. She was discharged and return [facility] where she has been in normal state of health for approximately 1 month. She reports that on Tuesday or Tuesday she began to feel similarly to her prior episode. She reports general weakness, nausea without emesis, epigastric pain without radiation, subjective fevers and chills, and headache all getting worse over the course of the last few days. She reported the symptoms to her facility today, and was found to have elevated LFTs for which she was sent to [facility]. At present she denies any swelling, dysuria, polyuria, or changes in the stools such as pale stool. Admission Exam Per Admitting Provider Temp 36.9 C 10/18/18 18:58 Pulse 70 10/18/18 18:58 Resp 16 10/18/18 18:58 BP 121/84 10/18/18 18:58 Pulse Ox 98 10/18/18 18:58 Constitutional: WD/WN, vitals as above Eyes: EOM intact bilaterally; no conjunctival abnormality ENMT: external ear and nose normal, oropharynx normal Neck: trachea midline, no thyromegaly normal visual inspection Respiratory: normal respiratory effort, lungs clear to auscultation no respiratory distress Cardiovascular: RRR, no murmur, no edema Gastrointestinal (Abdomen): Inspection/Auscultation: abdomen normal to inspection; abdomen not distended Musculoskeletal: no cyanosis or clubbing, extremities motor strength 5/5 Skin: no rashes, warm and dry Neurologic: moves all extremities and awake Psychiatric: Orientation: alert, oriented to person and cooperative Principal Diagnosis acute hepatitis C Discharge Exam Constitutional well developed, well nourished, + well hydrated, cooperative and comfortable; no acute distress Respiratory normal respiratory effort, lungs clear to auscultation Cardiovascular Rate/Rhythm: regular rate and regular rhythm Extremities: no calf tenderness Gastrointestinal (Abdomen) Inspection/Auscultation: abdomen normal to inspection and normal bowel sounds; abdomen not distended Percussion/Palpation: + abdomen tender (Upper abdomen bilaterally), abdomen soft and + hepatomegaly (2 cm below costal margin); no guarding, abdomen not rigid, no splenomegaly and no hernia Skin no rashes, warm and dry no jaundice Psychiatric Affect: + anxious affect Mood: + depressed mood and + anxious mood Discharge Data Allergies Allergy/AdvReac Type Severity Reaction Status Date / Time No Known Allergies Allergy Unverified 10/18/18 12:03 Consultations 10/18/18 16:28 ED Decision to Admit Stat 10/18/18 18:37 Consult Gastroenterology Routine 10/19/18 19:50 Consult Health Information Management Routine Ordered Studies 10/18/18 14:08 CT abd pelvis IV con only Stat 10/18/18 18:37 US abdomen limited Routine 10/18/18 20:28 US duplex portal hepatic veins Routine 10/19/18 10:27 MR MRCP Routine Hospital Course (1) Hepatitis: Ms Lissa Brown is a 37 year old incarcerated woman with a history of cholecystectomy who presents today for a second episode of feeling ill with elevated LFT's in the last month Hepatitis C * Tested positive for hepatitis C here, records from her previous hospital admission indicate she was treated for hepatitis C at that time as we ll. * Sizable percentage of acute hepatitis C infections are able to clear on their own and not turn into chronic infection, we managed her supportively here and recommend starting curative treatment with [facility] for chronic infection as an outpatient * Patient with some nausea and discomfort, recommend continuing her current zofran dose to ride out this acute infectious period. Based on my literature review it would not be out of the ordinary for her to still be having symptoms into November * Didn't write for pain control because her pain has been manageable with us and is mostly a tenderness to palpation and because we recommend avoiding tylenol with her damaged liver. If pain control is required small individual doses of NSAID's may be appropriate * LFT's trending down 706 and 1282 AST and ALT respectively * Spoke to [facility] today, they are very comfortable managing hepatitis C and will recheck her viral load in six months before deciding on treatment Depression * Continued home medications citalopram, mirtazapine (2) Depression: (3) S/P cholecystectomy: Total Time Total Time Spent Total Time Spent (In Minutes): <30 Discharge Plan Discharge Items [facility] Reason For Visit: HEPATITIS Discharge Diagnosis: Hepatitis C Condition: Good Discharge Goals: Decrease discomfort, Improve disease control and Therapeutic intervention Activity: Resume your previous activity Non-emergency contact: Primary Care Provider Call non-emergency contact if: you have any medication questions, your pain is not controlled and your temperature is above 100.5 Follow-up/Referrals: [facility] [Primary Care Provider] - Diet: Regular Addtl Provider Instructions: Hepatitis C You have been hospitalized for the acute phase of a hepatitis C infection. We have treated you with just supportive care and zofran for your nausea. * Your infection was confirmed by our testing, and a previous workup at an outside facility. * As you are in the acute phase of this infection, there is a good chance that you may clear this infection (14-50% on my literature review) * We recommend re checking Hepatitis C levels in six months to see if infection has cleared * If not we recommend treating your Hep C as an outpatient to prevent the complications we talked about of chronic hepatitis C including but not limited to: Liver Failure, Cirrhosis and hepatocellular carcinoma. * We will send you home with a script for Zofran for nausea * We strongly recommend you avoid tylenol as this can further damage your already taxed liver. * NSAID's in limited amounts for pain can be an option. * I contacted the care home medical team and they are on board with the plan and follow up. Prescriptions: Continued ondansetron HCl 4 mg Tablet 4 mg PO BID PRN (Reason: Nausea) RF: 0 citalopram 20 mg Tablet 20 mg PO DAILY RF: 0 omeprazole 20 mg Capsule,Delayed Release(Dr/Ec) 20 mg PO DAILY RF: 0 mirtazapine 15 mg Tablet 15 mg PO HS RF: 0 Stand-Alone Forms: My [facility]/Other Patient Handouts: Hepatitis C, Hepatitis C Tx, Hepatitis C and HCV Infec, Hepatitis C Prevent Spread, Hepatitis C Protect Liver, Hepatitis C Know Facts Discharge Orders: Discharge Order (Routine); Ordered 10/20/18 Ordered By: Salvador Alexis Admission Data Admit Date/Time: 10/18/18 17:10 Attending Provider: David Guillory Admit Provider: Zi Do Primary Care Provider: [facility] Other Providers: Zi Do ; Ezio Sandhu Service: Medical Other Interventions: Discharge Summary Assessment (RN) Last Done: 10/20/18 14:19 DC Date/Time DO NOT enter until pt leaves facility: 10/20/18 14:55 Supervising Physician Co-Signing Physician Notes I personally examined the patient and verified all gage points of history and exam, discussed case, and agree with decision making with Dr Alexis. Feeling okay. On again off again pain and on again off nausea. Discussed acute hepatitis C being the working diagnosis, and quite possible given our findings that are quite clearly corroborated by the findings in [place]. Vitals noted, in general she is in no distress. HEENT normocephalic atraumatic mucous membranes moist. Skin shows no rashes no pallor or icterus. Abdominal pain/nauseaappears to be acute hepatitis C. HIV was negative. Her LFTs including bilirubin are actually significantly better than last month in [place]. Discussed with the patient this will likely take another several weeks to get through the acute phase. Dr. Alexis discussed with the retirement and they are quite aware and astute at how to follow through with whether or not she is cleared to hep C and then pipeline here for treatment has she not. Stable for discharge. Resident Activity Tracking Resident Involvement: Resident Care Provided Care Provided: Adult Hospital Medicine
[2018-10-24 17:00] LABS: Albumin 3.7 G/DL (3.8-4.8); Alpha 1 Antitrypsin 142 MG/DL (83-199); Alpha 1 Globulin 0.3 G/DL (0.2-0.3); Alpha 2 Globulin 0.6 G/DL (0.5-0.9); Anti Nuclear Antibody Screen NEGATIVE (NEGATIVE); Beta-1-Globulin 0.4 G/DL (0.4-0.6); Beta-2-Globulin 0.4 G/DL (0.2-0.5); CMV IgG Antibody >10.00 U/ML; CMV IgM Antibody <30.00 Au/mL; Ceruloplasmin 26 MG/DL (18-53); EBV Nuclear Ag Antibody >600.00 U/ML; EBV Virus Capsid Ag IgG Ab >750.00 U/ML; Gamma Globulin 1.2 G/DL (0.8-1.7); Hepatitis C Vira RNA (Log) PCR 2.51 LOG IU/ML (<1.18); Hepatitis C Viral RNA by PCR 321 IU/ML (<15); Herpes Simplex Ab IgG-2 < 0.90 INDEX (< 0.90); IgA Serum 258 mg/dL (81-463); Monoclonal Protein Band 1 DNR G/DL (NOT DETECTED); Monoclonal Protein Band 2 DNR G/DL (NOT DETECTED); Monoclonal Protein Band 3 DNR G/DL (NOT DETECTED); Tis Trans IgA 1 U/mL (<4); Total Protein 6.6 G/DL (6.2-8.3)
== END 2018-10-20 14:55 | DRG 443 ==
LOC: ED 11:27 → 4W 17:10 → SUATTDRO 17:10 → 4W 18:16